=== PATIENT | female | born 1985 | race Caucasian/White ===

== ENCOUNTER → 2020-11-28 | Outpatient (REF) | payer OTHER | LOC: M SFHCWAGY 17:59 | PROVIDERS: ATTEND Advanced Practice Midwife | DX: Z12.4 Encounter for screening for malignant neoplasm of cervix (principal) ==

== ENCOUNTER → 2020-11-29 | Outpatient (REF) | payer OTHER ==
[2020-11-29 11:09] LABS: HEMATOCRIT 38.7 % (36.0-47.0); HEMOGLOBIN 12.3 g/dl (12.0-15.5); MEAN CORPUSCULAR HEMOGLOBIN 31.4 pg (27.0-33.0); MEAN CORPUSCULAR HGB CONC 31.8 g/dl (32.0-36.5); MEAN CORPUSCULAR VOLUME 98.7 fl (80.0-96.0); PLATELET COUNT, AUTOMATED 279 10^3/uL (150-450); RED BLOOD COUNT 3.92 10^6/uL (4.00-5.40); WHITE BLOOD COUNT 9.5 10^3/uL (4.0-10.0)
[2020-11-29 11:37] LABS: CREATININE,RANDOM URINE 32.2 MG/DL; TOTAL PROTEIN,RANDOM URINE < 5.0 MG/DL (0.0-12.0)
[2020-11-29 11:44] LABS: ALT/SGPT 19 U/L (12-78); BILIRUBIN,TOTAL 0.7 MG/DL (0.2-1.0); FREE T4 1.14 NG/DL (0.76-1.46); GLOMERULAR FILTRATION RATE > 60.0 (>60); LDH LACTATE DEHYDROGENASE 152 U/L (84-246)
[2020-11-29 12:27] LABS: HEPATITIS C VIRUS ABY INDEX 0.1 INDEX (<0.8)
[2020-11-29 12:28] LABS: HIV 1&2 SCREEN CENTAUR NEGATIVE (NEGATIVE)
== END ==
LOC: M PLALAB 09:04
PROVIDERS: ATTEND Advanced Practice Midwife
DX: Z3A.11 11 weeks gestation of pregnancy (principal)

== ENCOUNTER → 2021-01-01 | Outpatient (REF) | payer OTHER ==
[2021-01-01 18:53] LABS: FREE T4 1.08 NG/DL (0.76-1.46); THYROID STIMULATING HORMONE 1.4 uIU/ML (0.358-3.740)
== END ==
LOC: M PLALAB 14:12
PROVIDERS: ATTEND Advanced Practice Midwife
DX: O99.280 Endocrine, nutritional and metabolic diseases complicating pregnancy, unspecified trimester (principal)

== ENCOUNTER → 2021-01-17 | Outpatient (CLI) | payer OTHER ==
--- NOTE | 2021-01-17 16:58 | REP ---
INDICATION: ANATOMY. COMPARISON: None. TECHNIQUE: Real-time sonographic evaluation of the gravid uterus performed. FINDINGS: Estimated gestational age is18 weeks 5 days, EDC 06/15/2021. Today's measurements indicate appropriate growth. Presentation: Cephalic Placenta anterior, grade 0, without evidence of placenta previa. heart rate is recorded at 128 beats per minute. Amniotic fluid is subjectively normal. Closed cervical length is measured at 3.5 cm. Biometry chart: BPD: 47 mm, 20 weeks 1 days, 90th percentile. HC: 172 mm, 19 weeks 5 days, 81st percentile AC: 140 mm, 19 weeks 3 days, 64th percentile Femur length: 32 mm, 19 weeks 6 days, 80th percentile HC to AC ratio: 1.23, normal range 1.07-1.26. Estimated weight: 306g, greater than 97th percentile. anatomy: Cranium: Grossly normal Lateral Ventricles/Choroid Plexus: Grossly normal Posterior Fossa/Cerebellum: Grossly normal Nose/lips/profile: Grossly normal Four chamber heart: Not well seen due to position Right ventricular outflow tract: Grossly normal Left ventricular outflow tract: Not well seen due to position Left-sided stomach: Grossly normal Kidneys: Grossly normal Bladder: Grossly normal Cord Insertion: Grossly normal 3 vessel cord: Grossly normal Spine: Grossly normal IMPRESSION: Viable single intrauterine gestation as above. Four-chamber heart and left ventricular outflow tract not well seen due to position. <Electronically signed by Henry Bryan > 01/17/21 [id number]
== END ==
LOC: M WHC 09:20
PROVIDERS: ATTEND Advanced Practice Midwife
DX: Z34.92 Encounter for supervision of normal pregnancy, unspecified, second trimester (principal); Z3A.18 18 weeks gestation of pregnancy

== ENCOUNTER → 2021-02-19 | Outpatient (CLI) | payer OTHER ==
--- NOTE | 2021-02-19 10:45 | REP ---
INDICATION: F/U ANATOMY COMPARISON: 01/17/2021 TECHNIQUE: Transabdominal obstetrical ultrasound with color Doppler evaluation. FINDINGS: Examination demonstrates a single live intrauterine in breech presentation. motion is identified by technologist. Placenta is noted anterior and grade 1 without evidence for placenta previa or abruption. Amniotic fluid volume is normal. Cervix measures 3.8 cm in length and appears closed.. Gestational age by LMP and 1st ultrasound 23 weeks 3 days with MARCE 06/15/2021. Gestational age by current measurements 24 weeks 5 days with MARCE 06/06/2021. FHR equals 160 beats per minute. Estimated weight 785 grams (greater than 97thpercentile based on age at 23 weeks 3 days). Anatomical assessment demonstrates normal structures including heart and cardiac ventricular outflow tracts.. IMPRESSION: Single live intrauterine in breech presentation. In conjunction with prior examination anatomical assessment is complete and normal. Estimated weight is again greater than expected but demonstrates normal interval growth when compared with prior examination. <Electronically signed by Greg Aragon > 02/19/21 [id number]
== END ==
LOC: M WHC 09:16
PROVIDERS: ATTEND Advanced Practice Midwife
DX: O99.282 Endocrine, nutritional and metabolic diseases complicating pregnancy, second trimester (principal); Z3A.23 23 weeks gestation of pregnancy

== ENCOUNTER → 2023-04-10 | Outpatient (CLI) | payer OTHER ==
[~2023-04-10] MED LIST: ACET325C5 PO; MAGN400C PO; NIFE20CA PO; SYNT100T PO
[2023-04-10 14:25] LABS: HEMATOCRIT 40.5 % (36.0-47.0); HEMOGLOBIN 13.1 g/dl (12.0-15.5); MEAN CORPUSCULAR HGB CONC 32.3 g/dl (32.0-36.5); PLATELET COUNT, AUTOMATED 319 10^3/uL (150-450); RED BLOOD COUNT 4.22 10^6/uL (4.00-5.40); WHITE BLOOD COUNT 10.5 10^3/uL (4.0-10.0)
[2023-04-10 15:13] LABS: HIV 1&2 SCREEN NEGATIVE (NEGATIVE)
[2023-04-10 15:22] LABS: HEPATITIS C VIRUS ABY INDEX < 0.0 INDEX (<0.8)
[2023-04-10 15:35] LABS: GC DNA AMPLIFICATION NEGATIVE (NEGATIVE)
== END ==
LOC: M PLALAB 11:00
PROVIDERS: ATTEND Specialist
DX: Z34.81 Encounter for supervision of other normal pregnancy, first trimester (principal)

== ENCOUNTER → 2023-05-12 | Outpatient (CLI) | payer OTHER ==
[2023-05-12 13:32] LABS: FREE T4 1.17 NG/DL (0.89-1.76); THYROID STIMULATING HORMONE 1.914 uIU/ML (0.55-4.78)
== END ==
LOC: M PLALAB 09:24
PROVIDERS: ATTEND Obstetrics & Gynecology
DX: E03.9 Hypothyroidism, unspecified (principal)

== ENCOUNTER → 2023-06-26 | Outpatient (CLI) | payer OTHER | LOC: M WHC 10:28 | PROVIDERS: ATTEND Obstetrics & Gynecology | DX: Z34.92 Encounter for supervision of normal pregnancy, unspecified, second trimester (principal) ==

== ENCOUNTER → 2023-09-24 | Outpatient (CLI) | payer OTHER | LOC: M WHC 11:26 | PROVIDERS: ATTEND Specialist | DX: Z34.83 Encounter for supervision of other normal pregnancy, third trimester (principal) ==

== ENCOUNTER → 2023-10-27 | Outpatient (REF) | payer OTHER | LOC: M SFHCWAGY 13:02 | PROVIDERS: ATTEND Advanced Practice Midwife | DX: Z34.93 Encounter for supervision of normal pregnancy, unspecified, third trimester (principal) ==

== ENCOUNTER 2023-11-06 10:45 | Inpatient (IN) | payer OTHER ==
[~2023-11-06] VITALS: Ht 172.7 cm; Wt 110.2 kg
[2023-11-06] VITALS (7 sets, daily range): BP systolic 117–142; BP diastolic 56–74; O2SAT 97–98
[2023-11-06] MEDS ORDERED: HOME MED LIST COMPLETE! XX SCH (11:40)
[2023-11-06] MEDS ORDERED: CARBOPROST TROMETHAMINE 250 MCG/ML AMP IM PRN (12:20)
[2023-11-06] MEDS ORDERED: LIDOCAINE 1% MDV 20ML VIAL INFIL PRN (12:20)
[2023-11-06] MEDS ORDERED: OXYTOCIN DRIP 30 UNITS in IV 1 EA IV PRN (12:20)
[2023-11-06] MEDS ORDERED: TRANEXAMIC ACID INJection 1,000 MG in NS 100 ML IV PRN (12:20)
[2023-11-06] MEDS ORDERED: OXYTOCIN INJ 10UNITS/ML 1ML VIAL As Ordered ONE (12:45)
[2023-11-06] MEDS ORDERED: OXYTOCIN 30UNITS IN 0.9% NaCl 500ML IV BAG As Ordered ONE (12:47)
[2023-11-06 13:29] LABS: HEMATOCRIT 37.1 % (36.0-47.0); HEMOGLOBIN 12.3 g/dl (12.0-15.5); MEAN CORPUSCULAR HGB CONC 33.2 g/dl (32.0-36.5); MEAN CORPUSCULAR VOLUME 93.5 fl (80.0-96.0); PLATELET COUNT, AUTOMATED 285 10^3/uL (150-450); RED BLOOD COUNT 3.97 10^6/uL (4.00-5.40); WHITE BLOOD COUNT 14.9 10^3/uL (4.0-10.0)
[2023-11-06] MEDS ORDERED: RHOGAM 300MCG (1500IU) INJ IM SCH (16:05)
[2023-11-06] MEDS ORDERED: METHYLERGONOVINE MALEATE 0.2 MG TAB PO PRN (16:05)
[2023-11-06] MEDS ORDERED: IBUPROFEN 600MG TAB PO PRN (16:05)
[2023-11-06] MEDS ORDERED: DOCUSATE SODIUM 100MG CAPSULE PO PRN (16:05)
[2023-11-06] MEDS ORDERED: ACETAMINOPHEN TAB 650MG DOSE (2X325MG) PO PRN (16:05)
[2023-11-06] MEDS ORDERED: ACETAMINOPHEN 500 MG TAB PO PRN (16:05)
[2023-11-06] MEDS ORDERED: DIBUCAINE 1% OINTMENT 30GM TOP PRN (16:05)
[2023-11-06] MEDS: IBUPROFEN 800 MG TAB PO PRN (18:09)
[2023-11-07] MEDS: IBUPROFEN 800 MG TAB PO PRN ×2 (03:02→14:39)
[2023-11-07 06:00] VITALS: BP 107/56; O2SAT 100
[2023-11-07] MEDS ORDERED: LEVOTHYROXINE 100MCG TABLET (0.1MG) PO SCH (06:00)
[2023-11-07 09:00] VITALS: BP 107/56; TEMP 98; O2SAT 100
[2023-11-07] MEDS ORDERED: PRENATAL VITAMINS CHEWABLE TABLET PO SCH (09:00)
[2023-11-07] MEDS ORDERED: MAGNESIUM OXIDE 400MG TAB (MAG-OX) PO SCH (09:00)
[2023-11-08] MEDS ORDERED: MEASLES,MUMPS,RUBELLA VACCINE INJ (MMR-II) SC.IMMUN ONE (09:00)
== END 2023-11-07 16:10 | disposition home or self-care (01) | DRG 807 ==
LOC: M LDO 10:45 → M LDI 12:38 → M OBS 15:05
PROVIDERS: ADMIT Advanced Practice Midwife; ATTEND Advanced Practice Midwife
PROC: 10E0XZZ Delivery of Products of Conception, External Approach (ICD-10-PCS; principal; 2023-11-06)
DX: O99.42 Diseases of the circulatory system complicating childbirth (principal); Z37.0 Single live birth; O99.284 Endocrine, nutritional and metabolic diseases complicating childbirth; E03.9 Hypothyroidism, unspecified; I48.91 Unspecified atrial fibrillation; O69.81X0 Labor and delivery complicated by cord around neck, without compression, not applicable or unspecified; Z3A.38 38 weeks gestation of pregnancy; Z79.890 Hormone replacement therapy; Z79.899 Other long term (current) drug therapy

== ENCOUNTER → 2024-01-28 | Outpatient (CLI) | payer OTHER ==
[~2024-01-28] MED LIST changes: +MULTTAB20 PO
[2024-01-28 14:11] LABS: BASO # 0.1 10^3/uL (0.0-0.2); BASO % 0.6 % (0.0-1.0); EOS # 0.1 10^3/uL (0.0-0.5); EOS % 1.5 % (0.0-3.0); HEMOGLOBIN 13.3 g/dl (12.0-15.5); LYMPH # 2.5 10^3/uL (1.5-5.0); LYMPH % 31.6 % (24.0-44.0); MEAN CORPUSCULAR HEMOGLOBIN 30.4 pg (27.0-33.0); MEAN CORPUSCULAR HGB CONC 32.4 g/dl (32.0-36.5); MEAN CORPUSCULAR VOLUME 93.8 fl (80.0-96.0); MONO # 0.6 10^3/uL (0.0-0.8); MONO % 7.3 % (2.0-8.0); NEUTROPHILS # 4.7 10^3/uL (1.5-8.5); NEUTROPHILS % 58.9 % (36.0-66.0); PLATELET COUNT, AUTOMATED 302 10^3/uL (150-450); RED BLOOD COUNT 4.37 10^6/uL (4.00-5.40)
[2024-01-28 14:42] LABS: ALKALINE PHOSPHATASE 81 U/L (46-116); ALT/SGPT 23 U/L (7.0-40); AST/SGOT 23 U/L (<34); BILIRUBIN,TOTAL 0.9 MG/DL (0.3-1.2); BLOOD UREA NITROGEN 13 MG/DL (9-23); CALCIUM LEVEL 8.8 MG/DL (8.5-10.1); CARBON DIOXIDE LEVEL 28 MMOL/L (20-31); CHLORIDE LEVEL 104 MMOL/L (98-107); CREATININE FOR GFR 0.85 MG/DL (0.55-1.30); FREE T4 1.56 NG/DL (0.89-1.76); GLOMERULAR FILTRATION RATE > 60.0 (>60); GLUCOSE, FASTING 83 MG/DL (60-100); MAGNESIUM LEVEL 2.1 MG/DL (1.8-2.4); SODIUM LEVEL 138 MMOL/L (136-145); TOTAL PROTEIN 7.6 G/DL (5.7-8.2)
[2024-01-28 14:43] LABS: THYROID STIMULATING HORMONE 0.122 uIU/ML (0.55-4.78)
== END ==
LOC: M PLALAB 11:48
PROVIDERS: ATTEND Physician Assistant
DX: E03.9 Hypothyroidism, unspecified (principal)

== ENCOUNTER → 2024-01-28 | Outpatient (REF) | payer OTHER | LOC: M SFHCWAGY 13:09 | PROVIDERS: ATTEND Advanced Practice Midwife | DX: Z12.4 Encounter for screening for malignant neoplasm of cervix (principal) ==

== ENCOUNTER 2024-02-10 07:00 | Day surgery (SDC) | payer OTHER ==
[~2024-02-10] VITALS: Ht 172.7 cm; Wt 108.0 kg
[~2024-02-10 07:00] MED LIST changes: +LR 1,000 ML IV SCH
[2024-02-10] MEDS ORDERED: LR 1,000 ML IV SCH ×2 (07:25→10:10)
[2024-02-10 07:51] LABS: HEMATOCRIT 43.9 % (36.0-47.0); HEMOGLOBIN 14.3 g/dl (12.0-15.5); MEAN CORPUSCULAR HEMOGLOBIN 30.4 pg (27.0-33.0); MEAN CORPUSCULAR HGB CONC 32.6 g/dl (32.0-36.5); MEAN CORPUSCULAR VOLUME 93.4 fl (80.0-96.0); PLATELET COUNT, AUTOMATED 300 10^3/uL (150-450); WHITE BLOOD COUNT 7.7 10^3/uL (4.0-10.0)
[2024-02-10] MEDS ORDERED: propofoL 200 MG/20 ML VIAL As Ordered ONE (09:18)
[2024-02-10] MEDS ORDERED: SUGAMMADEX SODIUM 500 MG/5 ML VIAL (BRIDION) As Ordered ONE (09:18)
[2024-02-10] MEDS ORDERED: fentaNYL 100 MCG/2 ML INJECTION As Ordered ONE (09:18)
[2024-02-10] MEDS ORDERED: ROCURONIUM BROMIDE 50MG/5ML VIAL As Ordered ONE (09:18)
[2024-02-10] MEDS ORDERED: dexmedeTOMIDine (4MCG/ML)200MCG/50ML BTL (PRECEDEX) As Ordered ONE (09:18)
[2024-02-10] MEDS ORDERED: LIDOCAINE 2% 100MG/5ML SDV (FOR ANES.) As Ordered ONE (09:18)
[2024-02-10] MEDS ORDERED: ONDANSETRON 4MG 2ML VIAL As Ordered ONE (09:18)
[2024-02-10] MEDS ORDERED: MIDAZOLAM INJ 2MG/2ML VIAL As Ordered ONE (09:18)
[2024-02-10] MEDS ORDERED: ACETAMINOPHEN 1000MG 100ML IV BAG As Ordered ONE (09:26)
[2024-02-10] MEDS ORDERED: HYDROmorphone HCL 2MG/ML 1ML VIAL As Ordered ONE (09:28)
[2024-02-10] MEDS ORDERED: KETOROLAC 60MG 2ML VIAL As Ordered ONE (09:29)
[2024-02-10] MEDS ORDERED: HYDROMORPHONE HCL 0.5 MG/ 0.5 ML SYRINGE IV PRN (10:10)
[2024-02-10] MEDS ORDERED: oxyCODONE 5MG TAB PO PRN ×2 (10:10→10:45)
[2024-02-10] MEDS ORDERED: fentaNYL 100 MCG/2 ML INJECTION IV PRN (10:10)
[2024-02-10] MEDS: ONDANSETRON 4MG 2ML VIAL IV PRN (10:43)
[2024-02-10] MEDS ORDERED: ONDANSETRON 4MG 2ML VIAL IV PRN (10:45)
[2024-02-10] MEDS ORDERED: ACETAMINOPHEN 500 MG TAB PO PRN (10:45)
[2024-02-10] MEDS: METOCLOPRAMIDE INJ 10MG/2ML VIAL IV PRN (10:56)
[2024-02-10] MEDS ORDERED: diphenhydrAMINE 50MG/ML VIAL As Ordered ONE (11:09)
[2024-02-10] MEDS: diphenhydrAMINE 50MG/ML VIAL IV PRN (11:13)
[2024-02-10 12:44] VITALS: BP 116/67; TEMP 97.3; O2SAT 96
== END 2024-02-10 12:47 | disposition home or self-care (01) ==
LOC: M SDC 07:00
PROVIDERS: ATTEND Obstetrics & Gynecology
DX: Z30.2 Encounter for sterilization (principal)
CPT/HCPCS: 36415; 58661; 85027; 86850; 86900; 86901; 88302; J0131; J0665; J1100; J1170; J1200; J1885; J2250; J2405; J2765; J3010

== ENCOUNTER → 2024-03-22 | Outpatient (CLI) | payer OTHER ==
[~2024-03-22] MED LIST changes: -LR 1,000 ML IV SCH
[2024-03-22 15:55] LABS: FREE T4 1.16 NG/DL (0.89-1.76); THYROID STIMULATING HORMONE 1.501 uIU/ML (0.55-4.78)
== END ==
LOC: M PLALAB 12:04
PROVIDERS: ATTEND Physician Assistant
DX: E03.9 Hypothyroidism, unspecified (principal)